=== PATIENT | female | born 1925 | race Caucasian/White ===

== ENCOUNTER 2017-02-07 22:36 | Emergency (ER) | payer MEDICARE, BC ==
[~2017-02-07] VITALS: Ht 152.4 cm; Wt 58.1 kg
[2017-02-07 22:44] VITALS: BP 140/93
--- NOTE | 2017-02-07 23:11 | NUR ---
WOUND CARE PROVIDED. STERI STRIPS APPLIED.
== END 2017-02-07 23:12 | disposition home or self-care (01) ==
LOC: ER 22:36
DX: S61.216A Laceration without foreign body of right little finger without damage to nail, initial encounter (principal); I10 Essential (primary) hypertension; C50.919 Malignant neoplasm of unspecified site of unspecified female breast; C18.9 Malignant neoplasm of colon, unspecified; W01.10XA Fall on same level from slipping, tripping and stumbling with subsequent striking against unspecified object, initial encounter; Y93.89 Activity, other specified; Y92.89 Other specified places as the place of occurrence of the external cause; Y99.8 Other external cause status; Z90.89 Acquired absence of other organs
CPT/HCPCS: 99282; A4606; Z7610